=== PATIENT | male | born 1950 ===

== ENCOUNTER 2022-01-23 07:20 | Outpatient (CLI) | payer OTHER | END 2022-01-23 07:23 | disposition home or self-care (01) | LOC: NUCLEAR 07:20 | PROVIDERS: ATTEND Surgery | DX: K80.20 Calculus of gallbladder without cholecystitis without obstruction (principal) | CPT/HCPCS: 78227; A9537; J2805 ==

== ENCOUNTER 2022-02-19 09:51 | Outpatient (CLI) | payer OTHER | END 2022-02-19 09:55 | disposition home or self-care (01) | LOC: RAD 09:51 | PROVIDERS: ATTEND Surgery | DX: R07.9 Chest pain, unspecified (principal) ==